=== PATIENT | female | born 2000 | race Caucasian/White ===

== ENCOUNTER 2024-06-13 09:55 | Emergency (ER) | payer OTHER, SELFPAY ==
[2024-06-13 10:00] VITALS: BP 120/79; PULSE 87; RESP 16; TEMP 36.8; O2SAT 98
[2024-06-13 10:43] LABS: Basophils Absolute Auto 0.1 K/mm3 (0.0-0.1); Basophils Percent Auto 1.1 % (0.2-1.2); Eosinophils Percent Auto 0.3 % (0-4.4); Hematocrit 43.6 % (37.0-47.0); Hemoglobin 14.6 g/dL (12.0-15.0); Immature Granulocyte Absolute 0.01 K/mm3 (0.00-0.031); Immature Granulocyte Percent A 0.1 % (0-0.5); Lymphocytes Absolute Auto 1.02 K/mm3 (0.9-3.2); Lymphocytes Percent Auto 14.3 % (18.3-44.2); Mean Corpuscular HGB Conc 33.5 g/dl (32-36); Mean Corpuscular Hemoglobin 29.3 pg (26-34); Mean Corpuscular Volume 87.6 fl (80-100); Mean Platelet Volume 10.2 fl (7.4-10.4); Monocytes Absolute Auto 0.5 K/mm3 (0.1-0.6); Monocytes Percent Auto 7.4 % (2.6-8.5); Neutrophils Absolute Auto 5.5 K/mm3 (1.3-6.7); Neutrophils Percent Auto 76.8 % (45.5-73.1); Platelet Count Result 336 k/mm3 (150-375); Red Blood Count 4.98 M/mm3 (4.2-5.4); Red Cell Distribution Width 12.9 % (11.5-14.5); White Blood Count 7.1 K/mm3 (4.5-10.0)
[2024-06-13 10:49] LABS: Acetaminophen < 10 ug/mL (10-30); Ethanol < 10 mg/dL (<10); Salicylate < 1.0 mg/dL (2-20)
[2024-06-13 10:50] LABS: Add Urine Microscopic? YES; Appearance Urine Cloudy (Clear); Bacteria Urine 1+ /hpf; Bilirubin Urine Negative (Negative); Blood Urine Negative (Negative); Color Urine Yellow (Yellow); Glucose Urine UA Negative (Negative); Ketones Urine Negative (Negative); Leukocyte Esterase Ur Negative LEU/UL (Negative); Nitrate Urine Negative (Negative); Non Pathogenic Casts 0-2; Protein Urine Negative (Negative); RBC Urine 0-2 /hpf (0-2); Specific Grav Ur 1.009 (1.001-1.035); Squamous Epithelial Cell Urine Moderate /hpf (Few); Urobilinogen Urine 0.2 mg/dL (<2.0); pH Urine 7.5 (5.0-9.0)
[2024-06-13 10:51] LABS: Alanine Aminotransferase 20 U/L (6-35); Albumin Level 4.8 g/dL (3.5-5.1); Alkaline Phosphatase 69 U/L (38-126); Anion Gap 11 mmol/L (4-12); Aspartate Amino Transferase 29 U/L (14-36); Bilirubin,Total 0.7 mg/dL (0.2-1.3); Blood Urea Nitrogen 8 mg/dL (7-17); Calcium 9.4 mg/dL (8.4-10.2); Carbon Dioxide 23 mmol/L (22-30); Chloride 103 mmol/L (98-107); Estimated CRCL calculation 116 ml/min; Estimated Glomerular Filt Rate > 60; Glucose 112 mg/dL (65-110); Potassium 3.9 mmol/L (3.4-5.0); Sodium 137 mmol/L (137-145)
[2024-06-13 10:57] LABS: BEDSIDEPREGUCG Negative (Negative)
[2024-06-13 10:59] LABS: Amphetamine Screen Urine Negative (Negative); Barbiturate Screen Urine Negative (Negative); Benzodiazepines Screen Urine Negative (Negative); Cannabinoid Screen Urine Positive (Negative); Cocaine Screen Urine Negative (Negative); Methadone Screen Urine Negative (Negative); Opiate Screen Urine Negative (Negative); Phencyclidine Screen Urine Negative (Negative)
[2024-06-13 11:20] LABS: SARS-CoV-2 RNA PCR Negative (Negative); Thyroid Stimulating Hormone 0.778 uIU/mL (0.465-4.680)
--- NOTE | 2024-06-13 11:24 | ED.PSYCH ---
HPI - Psych General Chief Complaint: Psychiatric Symptoms Stated Complaint: SI Time Seen by Provider: 06/13/24 10:16 Source: patient Mode of arrival: ambulatory Limitations: no limitations History of Present Illness HPI Narrative: patient is a 23-year-old female who presents the ED with report of suicidal ideation. Patient reports history of depression/anxiety. Is on medications for this, recently had Prozac decreased and was started on Wellbutrin. States she has been having some suicidal ideation for a while, but the thoughts have become worse over the past 1 week since having her medication changed. States she has had more intention, but denies specific plan. She discussed this with her therapist today who advised her to come to the ED for further evaluation. Patient denies any homicidal ideation. She denies ever being psychiatrically hospitalized previously. Related Data Allergies Allergy/AdvReac Type Severity Reaction Status Date / Time No Known Allergies Allergy Verified 06/13/24 10:05 Review of Systems Review of Systems: All systems reviewed & are unremarkable except as noted in HPI. All systems reviewed & are unremarkable except as noted in HPI and below PMFSH Social History Social History Substance use type: does not use Exam Narrative: GENERAL: Well appearing, well-nourished, non-toxic, in no acute distress. HEAD: Normocephalic, atraumatic. RESPIRATORY: Airway patent, respirations nonlabored. Clear to auscultation bilaterally, no rales, rhonchi, wheezing. CARDIOVASCULAR: Regular rate and rhythm without murmurs, rubs, or gallops. MUSCULOSKELETAL: Moves all extremities. No gross deformities. SKIN: Warm, dry, normal color. NEURO: A&O X3. Speech clear. Cranial nerves II-XII grossly intact. Steady gait. No ataxic movements. PSYCHIATRIC: Depressed mood, flat affect. Fidgeting on stretcher. Limited eye contact. Course Vital Signs Vital signs: Vital Signs Temperature 98.3 F 06/13/24 10:00 Pulse Rate 87 06/13/24 10:00 Respiratory Rate 16 06/13/24 10:00 Blood Pressure 120/79 06/13/24 10:00 Pulse Oximetry 98 06/13/24 10:00 Oxygen Delivery Room Air 06/13/24 10:00 Temperature 98.2 F 06/13/24 15:20 Pulse Rate 86 06/13/24 15:20 Respiratory Rate 14 06/13/24 15:20 Blood Pressure 116/82 06/13/24 15:20 Pulse Oximetry 100 06/13/24 15:20 Oxygen Delivery Room Air 06/13/24 10:00 MDM - Psych MDM Narrative Medical decision making narrative: Patient presented to ED with suicidal ideation with intent. Patient denies specific plan currently. Sent in from therapist's office. ED psych workup was initiated. Laboratory studies are unremarkable. Patient medically cleared to undergo psychiatric evaluation by crisis. Crisis team evaluated patient and determined her to meet criteria inpatient psychiatric hospitalization. Patient currently under voluntary status. Patient received bed at [facility] for further psychiatric care. Patient has been stable and cooperative throughout ED stay. No events. Left facility in stable condition. Medical Records Attestation: I reviewed the patient's medical records. Lab Data Attestation: I reviewed the patient's lab results. 06/13/24 10:31 06/13/24 10:31 Labs: Lab Results 06/13/24 06/13/24 06/13/24 Range/Units 10:30 10:31 10:55 WBC 7.1 (4.5-10.0) K/mm3 RBC 4.98 (4.2-5.4) M/mm3 Hgb 14.6 (12.0-15.0) g/dL Hct 43.6 (37.0-47.0) % MCV 87.6 (80-100) fl MCH 29.3 (26-34) pg MCHC 33.5 (32-36) g/dl RDW 12.9 (11.5-14.5) % Plt Count 336 (150-375) k/mm3 MPV 10.2 (7.4-10.4) fl Immature Gran % (Auto) 0.1 (0-0.5) % Neut % (Auto) 76.8 H (45.5-73.1) % Lymph % (Auto) 14.3 L (18.3-44.2) % [place] % (Auto) 7.4 (2.6-8.5) % Eos % (Auto) 0.3 (0-4.4) % Baso
[2024-06-13 15:20] VITALS: BP 116/82; PULSE 86; RESP 14; TEMP 36.8; O2SAT 100
--- NOTE | 2024-06-13 15:33 | PC.NURSE ---
Called father at this time. Patients father did not answer at this time. Call back number left in voicemail. Patient requesting to give update of placement to him.
--- NOTE | 2024-06-13 15:37 | PC.NURSE ---
Father called back at this time. This RN gave father update of patient status per patient request. Phone number of [facility] given to father.
--- NOTE | 2024-06-13 16:37 | PC.NURSE ---
[facility] called for transport to [facility]. No ETA provided at this time.
--- NOTE | 2024-06-13 17:25 | PC.NURSE ---
[facility] here at this to get patient to take to [facility].
== END 2024-06-13 17:27 ==
LOC: ANHED 11:15
PROVIDERS: Emergency Provider Physician Assistant
DX: R45.851 Suicidal ideations (principal); F32.A Depression, unspecified; Z20.822 Contact with and (suspected) exposure to COVID-19; R82.998 Other abnormal findings in urine
CPT/HCPCS: 36415; 80053; 80143; 80179; 80307; 81001; 81025; 82077; 84443; 85025; 87086; 87635; 99285